=== PATIENT | female | born 1965 | race American Indian/Alaskan Native ===

== ENCOUNTER 2019-10-17 15:25 | Emergency (ER) | payer MEDICAID ==
[~2019-10-17] VITALS: Ht 172.7 cm; Wt 101.6 kg
[~2019-10-17 15:25] MED LIST: PAXIL
[2019-10-17 15:59] VITALS: BP 154/100
--- NOTE | 2019-10-17 16:24 | NUR ---
PT TO RADIOLOGY VIA WHEELCHAIR
--- NOTE | 2019-10-17 16:33 | NUR ---
PT TAKEN TO BED 07 FROM RADIOLOGY VIA WHEELCHAIR
--- NOTE | 2019-10-17 16:39 | NUR ---
54 YO FEMALE CO COUGH FOR X2W. PT SEEN AT URGENT CARE AND IS HERE TO R/O PNA. PT STATES THAT SHE IS ON MEDICATION FOR COUGH BUT IT IS NOT HELPING. PT HAS NO MED HX. PT IS TAKING RX MEDS FOR COUGH. LAYING IN BED WITH ONE SIDE RAIL UP FOR SAFETY.
[2019-10-17] MEDS ORDERED: ALBUTEROL SULFATE/IPRATROPIU 3 ML SOL IH ONE (16:45)
--- NOTE | 2019-10-17 16:49 | NUR ---
RT AT BEDSIDE TO ADMINISTER BREATHING TX
[2019-10-17] MEDS ORDERED: cefTRIAXone 1,000 MG in LIDOCAINE MPF 1% 2.1 ML IM ONE (17:10)
[2019-10-17] MEDS ORDERED: cefTRIAXone 1,000 MG VIAL ONE (17:13)
[2019-10-17] MEDS ORDERED: LIDOCAINE MPF 1% 5 ML ONE (17:14)
[2019-10-17 17:27] VITALS: BP 154/100
--- NOTE | 2019-10-17 17:28 | NUR ---
Patient discharged with v/s stable. Written and verbal after care instructions given and explained. Patient alert, oriented and verbalized understanding of instructions. Ambulatory with steady gait. All questions addressed prior to discharge. ID band removed. Patient advised to follow up with PMD. Rx of MACROBID, PYRIDIUM given. Patient educated on indication of medication including possible reaction and side effects. Opportunity to ask questions provided and answered.
--- NOTE | 2019-10-17 17:36 | NUR ---
Patient discharged with v/s stable. Written and verbal after care instructions given and explained. Patient alert, oriented and verbalized understanding of instructions. Ambulatory with steady gait. All questions addressed prior to discharge. ID band removed. Patient advised to follow up with PMD. Rx of AZITHROMYCIN given. Patient educated on indication of medication including possible reaction and side effects. Opportunity to ask questions provided and answered.
== END 2019-10-17 17:36 | disposition home or self-care (01) ==
LOC: MED 15:25
DX: J18.9 Pneumonia, unspecified organism (principal); M79.10 Myalgia, unspecified site; J45.909 Unspecified asthma, uncomplicated; Z79.899 Other long term (current) drug therapy; Z88.0 Allergy status to penicillin
CPT/HCPCS: 71045; 94640; 96372; 99283; J0696; J2001; J7620

== ENCOUNTER 2019-10-22 11:15 | Emergency (ER) | payer OTHER, MEDICAID ==
[~2019-10-22] VITALS: Ht 172.7 cm; Wt 101.2 kg
[2019-10-22 11:34] VITALS: BP 134/73
--- NOTE | 2019-10-22 11:39 | NUR ---
WAIT AT LOBBY.
[2019-10-22] MEDS ORDERED: ALBUTEROL SULFATE/IPRATROPIU 3 ML SOL IH ONE (12:55)
[2019-10-22] MEDS ORDERED: KETOROLAC 60 MG/2 ML VIAL IM ONE (12:55)
--- NOTE | 2019-10-22 13:00 | NUR ---
WALKED TO ROOM 2 IN STEADY GAIT. WITH CO COUGH AND BODACHE. PT WAS A/OX4, SPEAKS FULL SENTENCES, FOLLOWS COMMAND, DENIES GUPTA AN DDIZZINESS. NO SOB BREHATING EVEN. COUGH OCCASIONALLY. DENIES N/V/D. PT AMBULATES ON FLOOR IN STEADY GAIT.
[2019-10-22 14:28] VITALS: BP 138/75
== END 2019-10-22 14:25 | disposition home or self-care (01) ==
LOC: MED 11:15
DX: J18.9 Pneumonia, unspecified organism (principal); J45.909 Unspecified asthma, uncomplicated; Z88.0 Allergy status to penicillin
CPT/HCPCS: 71045; 94640; 96372; 99283; J1885; J7620

== ENCOUNTER 2021-01-01 16:43 | Emergency (ER) | payer MEDICAID, OTHER ==
[~2021-01-01] VITALS: Ht 177.8 cm; Wt 98.0 kg
[2021-01-01 16:48] VITALS: BP 163/82
--- NOTE | 2021-01-01 16:55 | NUR ---
PT AMBULATED TO BED 7.
--- NOTE | 2021-01-01 16:56 | NUR ---
55 Y/O FEMALE C/O RIGHT FLANK PAIN DESCRIES 06/15 DESCRIBES BURNING AND THROBBING INTERMITTENT SINCE 0900 THIS MORNING. DENIES DYSUIRA, HEMATURIA. PT TOOK UNKNOWN MG OF NORCO AND MUSCLE REXALXER WITH NO RLEIEF OF SYMPTOMS. PT DENIES N/V, DENIES FEVER/CHILLS. DENIES PMH ALLERGIES: TYRELN
--- NOTE | 2021-01-01 17:01 | NUR ---
Dr. Stevenson at pt bedside for further evalution.
[2021-01-01] MEDS ORDERED: KETOROLAC 60 MG/2 ML VIAL IM ONE (17:10)
[2021-01-01] MEDS ORDERED: LIDOCAINE 5% 1 EA PATCH TP SCH (17:10)
[2021-01-01] MEDS ORDERED: CYCLOBENZAPRINE 10 MG TAB PO ONE (17:10)
[2021-01-01] MEDS ORDERED: ACETAMINOPHEN EXTRA STRENGTH 500 MG TAB PO ONE (17:10)
[2021-01-01] MEDS ORDERED: IBUP-2213 PO (17:43)
[2021-01-01] MEDS ORDERED: LID5T TP (17:43)
[2021-01-01] MEDS ORDERED: ACET-9800 PO (17:43)
[2021-01-01] MEDS ORDERED: CYCL-711 PO (17:43)
[2021-01-01 18:04] VITALS: BP 163/82
--- NOTE | 2021-01-01 18:04 | NUR ---
Patient discharged with v/s stable. Written and verbal after care instructions given and explained. Patient alert, oriented and verbalized understanding of instructions. Ambulatory with steady gait. All questions addressed prior to discharge. ID band removed. Patient advised to follow up with PMD. Rx of flexeril 10mg tid po prn muscle spasms, lidocaine patch topical for 12h, ibuprofen 600mg po q6h prn pain, and acetaminophen 500mg po q8h prn pain given. Patient educated on indication of medication including possible reaction and side effects. Opportunity to ask questions provided and answered.
== END 2021-01-01 18:04 | disposition home or self-care (01) ==
LOC: MED 16:43
DX: M54.42 Lumbago with sciatica, left side (principal); J45.909 Unspecified asthma, uncomplicated; Z79.899 Other long term (current) drug therapy; Z79.1 Long term (current) use of non-steroidal anti-inflammatories (NSAID); Z88.0 Allergy status to penicillin
CPT/HCPCS: 81002; 96372; 99284; J1885

== ENCOUNTER 2021-06-21 14:06 | Emergency (ER) | payer MEDICAID, OTHER ==
[~2021-06-21] VITALS: Ht 177.8 cm; Wt 97.1 kg
[~2021-06-21 14:06] MED LIST changes: +ACET-9800 PO; +CYCL-711 PO; +IBUP-2213 PO; +LID5T TP
[2021-06-21 14:15] VITALS: BP 126/71
--- NOTE | 2021-06-21 14:23 | NUR ---
TENT 1
--- NOTE | 2021-06-21 14:24 | NUR ---
BIB SON C/O COUGH, SORE THROAT, GUPTA, STUFFY NOSE, LEFT EAR PAIN, BODY ACHE, MID CHEST PAIN , CHILLS X 2 DAYS. PMH: ASTHMA
--- NOTE | 2021-06-21 14:24 | NUR ---
Patient being evaluated by LACEY AVILES at bedside.
--- NOTE | 2021-06-21 14:33 | NUR ---
COVID PCR & RAPID SWABS DONE.
[2021-06-21] MEDS ORDERED: PRED20TA5 PO (15:18)
[2021-06-21] MEDS ORDERED: PSEU120T23 PO (15:18)
[2021-06-21] MEDS ORDERED: PROM118S5 PO (15:18)
[2021-06-21 15:46] VITALS: BP 112/68
--- NOTE | 2021-06-21 15:46 | NUR ---
Patient discharged with v/s stable. Written and verbal after care instructions given and explained. Patient alert, oriented and verbalized understanding of instructions. Ambulatory with steady gait. All questions addressed prior to discharge. ID band removed. Patient advised to follow up with PMD. Rx of PREDNISONE, PROMETHAZINE, SUDAFED given. Patient educated on indication of medication including possible reaction and side effects. Opportunity to ask questions provided and answered.
== END 2021-06-21 15:46 | disposition home or self-care (01) ==
LOC: MED 14:06
DX: J06.9 Acute upper respiratory infection, unspecified (principal); Z20.822 Contact with and (suspected) exposure to COVID-19; J44.9 Chronic obstructive pulmonary disease, unspecified; Z88.0 Allergy status to penicillin; Z79.899 Other long term (current) drug therapy
CPT/HCPCS: 71045; 87426; 99284; Q0092; U0003

== ENCOUNTER 2022-07-16 10:43 | Emergency (ER) | payer MEDICAID ==
[~2022-07-16] VITALS: Ht 172.7 cm; Wt 95.7 kg
[~2022-07-16 10:43] MED LIST changes: +PRED20TA5 PO; +PROM118S5 PO; +PSEU120T23 PO
[2022-07-16 10:44] VITALS: BP 110/65
--- NOTE | 2022-07-16 11:07 | NUR ---
57/F C/O COUGH CONGESTION AND LEFT SIDED CHEST PAIN ACCOMPANIED BY SORE THROAT ONSET 3 DAYS. DENIES FEVER OR KNOWN CONTACT WITH SICK, AAO4, AMBULATORY, EKG DONE AT BEDSIDE. pmh: asthma allergy: penicillin med: denies
--- NOTE | 2022-07-16 11:15 | NUR ---
PT WENT TO XR
--- NOTE | 2022-07-16 11:30 | NUR ---
PT BACK FROM XR
--- NOTE | 2022-07-16 12:50 | NUR ---
Patient discharged with v/s stable. Written and verbal after care instructions given and explained. Patient verbalized understanding. Ambulatory with steady gait. All questions addressed prior to discharge. Advised to follow up with PMD.
== END 2022-07-16 12:50 | disposition home or self-care (01) ==
LOC: MED 10:43
DX: B34.9 Viral infection, unspecified (principal); Z20.822 Contact with and (suspected) exposure to COVID-19; J45.909 Unspecified asthma, uncomplicated
CPT/HCPCS: 71046; 93005; 99285

== ENCOUNTER 2022-08-21 16:54 | Emergency (ER) | payer MEDICAID ==
[~2022-08-21] VITALS: Ht 172.7 cm; Wt 97.5 kg
[2022-08-21 16:57] VITALS: BP 110/78
--- NOTE | 2022-08-21 17:08 | NUR ---
57/F WALKED IN C/O LEFT SIDED CHEST PAIN RADIATING TO LEFT ARM AND NECK ONSET 1WK. PT REPORTS PAIN WORSE WITH INHALATION AND EXERTION. DENIES DIZZINESS OR NAUSEA. AAO4, AMBULATORY, VITALS STABLE. 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 EKG DONE. IV ESTBLISHED TO RIGHT AC WITH 20G. ALLERGY: PCN PMH: ASTHMA
[2022-08-21] MEDS ORDERED: KETOROLAC 30 MG/ML VIAL ONE (17:13)
[2022-08-21] MEDS ORDERED: KETOROLAC 60 MG/2 ML VIAL IM ONE (17:15)
[2022-08-21] MEDS ORDERED: KETOROLAC 30 MG/ML VIAL IVP ONE (17:15)
[2022-08-21 17:28] LABS: BASOPHILS % (AUTO) 0.6 % (0.0-2.0); EOSINOPHILS # (AUTO) 0.2 K/uL (0-0.4); EOSINOPHILS % (AUTO) 3.4 % (0.0-4.0); HEMATOCRIT 35.9 % (36-48); HEMOGLOBIN 12.2 g/dL (12.0-16.0); LYMPHOCYTES # (AUTO) 1.7 K/uL (2.5-16.5); LYMPHOCYTES % (AUTO) 26.3 % (20.5-51.1); MEAN CORPUSCULAR HEMOGLOBIN 31 pg (27-31); MEAN CORPUSCULAR HGB CONC 34 g/dL (33-37); MEAN CORPUSCULAR VOLUME 92.2 fL (80-94); MONOCYTES # (AUTO) 0.4 K/uL (0.8-1.0); MONOCYTES % (AUTO) 6.7 % (1.7-9.3); NEUTROPHILS # (AUTO) 4.2 K/uL (1.8-7.7); PLATELET COUNT (AUTO) 228 K/uL (140-450); RED BLOOD CELL COUNT(AUTO) 3.89 MIL/uL (4.20-5.40); WHITE BLOOD COUNT (AUTO) 6.6 K/uL (4.8-10.8)
[2022-08-21 17:47] LABS: ALBUMIN 3.6 g/dL (3.4-5.0); ANION GAP 12.2 (8-16); ASPARTATE AMINOTRANSFERASE 19 U/L (15-37); CARBON DIOXIDE 26.6 mmol/L (21-32); CHLORIDE 105 mmol/L (98-107); CREATININE 0.8 mg/dL (0.6-1.3); GFR ARICAN-AMERICAN 96 mL/min (>90); GLUCOSE 99 mg/dL (74-106); POTASSIUM 3.8 mmol/L (3.5-5.1); SODIUM SERUM 140 mmol/L (136-145); TOTAL BILIRUBIN 0.6 mg/dL (0.0-1.0); UREA NITROGEN, BLOOD 15 mg/dL (7-18)
[2022-08-21] MEDS ORDERED: IBUP-2213 PO (17:56)
[2022-08-21] MEDS ORDERED: CYCL-711 PO (17:56)
[2022-08-21] MEDS ORDERED: LIDO1ADH47 TP (17:56)
--- NOTE | 2022-08-21 18:10 | NUR ---
IV removed, catheter intact and site benign. Applied folded 4x4 gauze and tape to stop bleeding.
--- NOTE | 2022-08-21 18:14 | NUR ---
Patient discharged with v/s stable. Written and verbal after care instructions ABOUT CHEST WALL PAIN given and explained. Patient alert, oriented and verbalized understanding of instructions. Ambulatory with steady gait. All questions addressed prior to discharge. ID band removed. Patient advised to follow up with PMD. Rx of FLEXERIL, IBUPROFEN, AND LIDOCAINE PATCH given. Patient educated on indication of medication including possible reaction and side effects. Opportunity to ask questions provided and answered.
== END 2022-08-21 18:14 | disposition home or self-care (01) ==
LOC: MED 16:54
DX: R07.89 Other chest pain (principal); M25.512 Pain in left shoulder; J44.0 Chronic obstructive pulmonary disease with (acute) lower respiratory infection; E11.9 Type 2 diabetes mellitus without complications; Z88.0 Allergy status to penicillin; Z79.899 Other long term (current) drug therapy
CPT/HCPCS: 36415; 71045; 80053; 84484; 85025; 93005; 96374; 99285; J1885; Q0092

== ENCOUNTER 2022-11-07 09:09 | Emergency (ER) | payer MEDICAID ==
[~2022-11-07] VITALS: Ht 177.8 cm; Wt 96.6 kg
[~2022-11-07 09:09] MED LIST changes: +LIDO1ADH47 TP
[2022-11-07 09:11] VITALS: BP 116/66
--- NOTE | 2022-11-07 09:18 | NUR ---
PT AMB TO BED 7.
--- NOTE | 2022-11-07 09:24 | NUR ---
Patient being evaluated by physician at bedside.
[2022-11-07] MEDS ORDERED: predniSONE 20 MG TAB PO ONE (09:30)
[2022-11-07] MEDS ORDERED: ALBUTEROL 0.083% 2.5 MG/3 ML NEBU INH ONE (09:30)
[2022-11-07] MEDS ORDERED: ALBU0.0912 IH (09:33)
[2022-11-07] MEDS ORDERED: PRED20TA5 PO (09:33)
[2022-11-07] MEDS ORDERED: PRON INH (09:33)
[2022-11-07] MEDS ORDERED: NAPR1TAB23 PO (10:15)
[2022-11-07] MEDS ORDERED: MUC600 PO (10:15)
--- NOTE | 2022-11-07 10:25 | NUR ---
Patient discharged with v/s stable. Written and verbal after care instructions given and explained. Patient alert, oriented and verbalized understanding of instructions. Ambulatory with steady gait. All questions addressed prior to discharge. ID band removed. Patient advised to follow up with PMD. Rx of PREDNISONE, ALBUTEROL AND NAPROXEN given. Patient educated on indication of medication including possible reaction and side effects. Opportunity to ask questions provided and answered.
== END 2022-11-07 10:25 | disposition home or self-care (01) ==
LOC: MED 09:09
DX: J20.8 Acute bronchitis due to other specified organisms (principal); Z20.822 Contact with and (suspected) exposure to COVID-19; J44.9 Chronic obstructive pulmonary disease, unspecified; J45.909 Unspecified asthma, uncomplicated; E11.9 Type 2 diabetes mellitus without complications; Z79.4 Long term (current) use of insulin; Z79.899 Other long term (current) drug therapy; Z88.0 Allergy status to penicillin
CPT/HCPCS: 87426; 87804; 94640; 99283; J7512; J7613; 94644

== ENCOUNTER 2023-03-07 10:38 | Emergency (ER) | payer MEDICAID ==
[~2023-03-07] VITALS: Ht 177.8 cm; Wt 99.3 kg
[~2023-03-07 10:38] MED LIST changes: +ALBU0.0912 IH; +MUC600 PO; +NAPR1TAB23 PO; +PRON INH
[2023-03-07 10:47] VITALS: BP 128/71; PULSE 78; RESP 20; TEMP 97.6; O2SAT 98
--- NOTE | 2023-03-07 10:58 | NUR ---
Patient being evaluated by K[facility] at [facility].
[2023-03-07 11:00] VITALS: BP 119/61; PULSE 87; RESP 18; TEMP 98.4; O2SAT 96
[2023-03-07] MEDS ORDERED: KETOROLAC 30 MG/ML VIAL IM ONE (11:05)
[2023-03-07] MEDS ORDERED: CYCL-711 PO (11:10)
[2023-03-07] MEDS ORDERED: GABA100C PO (11:10)
[2023-03-07] MEDS ORDERED: LID5T TP (11:10)
[2023-03-07] MEDS ORDERED: NAPR-54 PO (11:10)
[2023-03-07 11:22] VITALS: O2SAT 98
== END 2023-03-07 11:35 | disposition home or self-care (01) ==
LOC: MED 10:38
DX: M54.16 Radiculopathy, lumbar region (principal); J44.9 Chronic obstructive pulmonary disease, unspecified; E11.9 Type 2 diabetes mellitus without complications; I10 Essential (primary) hypertension; Z79.899 Other long term (current) drug therapy; Z79.1 Long term (current) use of non-steroidal anti-inflammatories (NSAID); Z88.0 Allergy status to penicillin
CPT/HCPCS: 81002; 96372; 99283; J1885

== ENCOUNTER 2023-04-10 16:33 | Emergency (ER) | payer MEDICAID ==
[~2023-04-10] VITALS: Ht 177.8 cm; Wt 100.4 kg
[~2023-04-10 16:33] MED LIST changes: +GABA100C PO; +NAPR-54 PO
[2023-04-10 16:56] VITALS: BP 135/69; PULSE 69; RESP 20; TEMP 97.2; O2SAT 97
[2023-04-10] MEDS ORDERED: SULF-59 PO (19:54)
[2023-04-10 19:58] VITALS: BP 127/74; PULSE 88; RESP 16; TEMP 97.3; O2SAT 99
--- NOTE | 2023-04-10 19:58 | NUR ---
NO CONTACT WITH PT. PT SEEN, ASSESSED, AND DISCHARGED BY PROVIDER.
--- NOTE | 2023-04-10 19:58 | NUR ---
Patient discharged with v/s stable. Written and verbal after care instructions given and explained. Patient alert, oriented and verbalized understanding of instructions. Ambulatory with steady gait. All questions addressed prior to discharge. ID band removed. Patient advised to follow up with PMD. Rx of BACTRIM DS given. Patient educated on indication of medication including possible reaction and side effects. Opportunity to ask questions provided and answered.
== END 2023-04-10 19:58 | disposition home or self-care (01) ==
LOC: MED 16:33
DX: L03.116 Cellulitis of left lower limb (principal); J44.9 Chronic obstructive pulmonary disease, unspecified; I10 Essential (primary) hypertension; Z79.899 Other long term (current) drug therapy
CPT/HCPCS: 99284

== ENCOUNTER 2023-06-08 09:53 | Emergency (ER) | payer MEDICAID ==
[~2023-06-08] VITALS: Ht 177.8 cm; Wt 104.3 kg
[~2023-06-08 09:53] MED LIST changes: +SULF-59 PO
[2023-06-08 10:17] VITALS: BP 129/84; PULSE 86; RESP 18; TEMP 98; O2SAT 98
[2023-06-08 10:40] VITALS: O2SAT 98
[2023-06-08] MEDS ORDERED: LIDOCAINE 5% 1 EA PATCH TP ONE (10:50)
[2023-06-08] MEDS ORDERED: KETOROLAC 30 MG/ML VIAL IM ONE (10:50)
[2023-06-08 11:18] LABS: APPEARANCE,URINE CLEAR (CLEAR); BILIRUBIN,URINE NEGATIVE (NEGATIVE); BLOOD, URINE 1+ (NEGATIVE); COLOR,URINE YELLOW (YELLOW); LEUKOCYTE ESTERASE ,URINE NEGATIVE (NEGATIVE); NITRITE, URINE NEGATIVE (NEGATIVE); PROTEIN,URINE NEGATIVE (NEGATIVE); UGLUCOSE NEGATIVE (NEGATIVE); UROBILINOGEN,URINE 0.2 EU/dL (0.2 - 1)
[2023-06-08 11:29] LABS: BACTERIA,URINE OCCASSIONAL /HPF (None Seen); RBC,URINE 0-5 /HPF (0-5); SQUAMOUS EPITHELIAL CELL,UR 0-3 (FEW) /LPF (0-3 (FEW)); WBC,URINE 0-5 /HPF (0-5)
[2023-06-08] MEDS ORDERED: CYCL-711 PO (12:10)
[2023-06-08] MEDS ORDERED: LID5T TP (12:10)
[2023-06-08] MEDS ORDERED: IBUP-2213 PO (12:10)
[2023-06-08 12:40] VITALS: BP 142/97; PULSE 72; RESP 20; TEMP 97.7; O2SAT 97
== END 2023-06-08 12:15 | disposition home or self-care (01) ==
LOC: MED 09:53
DX: S39.012A Strain of muscle, fascia and tendon of lower back, initial encounter (principal); R19.7 Diarrhea, unspecified; J44.9 Chronic obstructive pulmonary disease, unspecified; E11.9 Type 2 diabetes mellitus without complications; Z79.899 Other long term (current) drug therapy; Z79.1 Long term (current) use of non-steroidal anti-inflammatories (NSAID); Z79.2 Long term (current) use of antibiotics; Z88.0 Allergy status to penicillin; X50.0XXA Overexertion from strenuous movement or load, initial encounter; Y92.89 Other specified places as the place of occurrence of the external cause; Y93.89 Activity, other specified; Y99.8 Other external cause status
CPT/HCPCS: 81001; 81025; 96372; 99283; J1885

== ENCOUNTER 2024-05-22 22:48 | Emergency (ER) | payer MEDICAID, OTHER ==
[~2024-05-22] VITALS: Ht 177.8 cm; Wt 101.2 kg
[~2024-05-22 22:48] MED LIST changes: +NAPR-337 PO; -NAPR-54 PO
[2024-05-22 22:54] VITALS: BP 170/98; PULSE 74; RESP 20; TEMP 97.5; O2SAT 98
[2024-05-22 23:16] VITALS: O2SAT 99
[2024-05-22 23:32] LABS: BASOPHILS # (AUTO) 0.1 K/uL (0.00-0.22); BASOPHILS % (AUTO) 0.6 % (0.0-2.0); EOSINOPHILS # (AUTO) 0.3 K/uL (0-0.4); HEMATOCRIT 37.7 % (36-48); HEMOGLOBIN 12.9 g/dL (12.0-16.0); LYMPHOCYTES # (AUTO) 2.6 K/uL (2.5-16.5); LYMPHOCYTES % (AUTO) 25.4 % (20.5-51.1); MEAN CORPUSCULAR HEMOGLOBIN 31 pg (27-31); MEAN CORPUSCULAR HGB CONC 34 g/dL (33-37); MEAN CORPUSCULAR VOLUME 91.6 fL (80-94); MONOCYTES # (AUTO) 0.7 K/uL (0.8-1.0); NEUTROPHILS # (AUTO) 6.7 K/uL (1.8-7.7); PLATELET COUNT (AUTO) 248 K/uL (140-450); RED BLOOD CELL COUNT(AUTO) 4.12 MIL/uL (4.20-5.40); RED CELL DISTRIBUTION WIDTH 13.4 % (11.6-13.7); WHITE BLOOD COUNT (AUTO) 10.4 K/uL (4.8-10.8)
[2024-05-22 23:47] LABS: POTASSIUM 3.5 mmol/L (3.5-5.1)
[2024-05-22 23:48] LABS: CALCIUM 8.8 mg/dL (8.5-10.1); CARBON DIOXIDE 28.5 mmol/L (21-32); CREATININE 0.8 mg/dL (0.6-1.3)
[2024-05-23] MEDS: CYCLOBENZAPRINE 10 MG TAB PO ONE (01:04)
[2024-05-23] MEDS: KETOROLAC 30 MG/ML VIAL IM ONE (01:06)
[2024-05-23] MEDS: HYDROcodone/APAP 7.5/325 MG 1 TAB PO ONE (02:08)
[2024-05-23] MEDS: ACETAMINOPHEN EXTRA STRENGTH 500 MG TAB PO ONE (02:09)
[2024-05-23] MEDS ORDERED: METH-1681 PO (03:29)
[2024-05-23] MEDS ORDERED: NAPR-337 PO (03:29)
[2024-05-23 03:34] VITALS: BP 122/66; PULSE 68; RESP 20; TEMP 98.1; O2SAT 97
== END 2024-05-23 03:34 | disposition home or self-care (01) ==
LOC: MED 22:48
DX: M43.6 Torticollis (principal); J44.9 Chronic obstructive pulmonary disease, unspecified; Z79.899 Other long term (current) drug therapy; Z88.0 Allergy status to penicillin
CPT/HCPCS: 20553; 36415; 71045; 80048; 84484; 85025; 93005; 96372; 99285; J1885